=== PATIENT | female | born 1995 | race Caucasian/White ===

== ENCOUNTER → 2018-06-05 | Outpatient (CLI) | payer OTHER ==
--- NOTE | 2018-06-05 15:21 | MAMMOGRAPHY REPORT ---
ULTRASOUND OF LEFT BREAST: 06/05/2018 CLINICAL HISTORY: 23-year-old woman presents with a palpable lump in the 12:00 left breast. A prior l eft breast ultrasound dated 06/24/2016 demonstrated a complicated cyst in the area of concern, for whi ch short interval follow-up ultrasound was recommended. The patient now presents for follow-up and al so reports it may be increased in size and is more firm in texture. COMPARISON: Comparison is made to exam dated: 06/24/2016 ultrasound performed at [facility]. FINDINGS: Targeted ultrasound was performed in the area of palpable lump pointed out by the patient, in the 12:00 periareolar left breast. In the area of concern, there is a discrete rubbery oval mass approximately 1.5 cm. Targeted ultrasound performed over this mass demonstrates a superficial oval p arallel circumscribed predominantly anechoic cystic mass measuring 11.5 x 5.8 x 15.5 mm. This has no t significantly changed comparing to the prior ultrasound at which time it measured 1.6 x 4.4 x 1.4 m m. However, the patient wishes removal of this cyst and we discussed options of attempting fine-need le aspiration versus surgical excision. We will attempt fine-needle aspiration for symptomatic relie f but also discussed the possibility of reaccumulation after aspiration. IMPRESSION: ACR BI-RADS CATEGORY 4: SUSPICIOUS 1. Ultrasound-guided cyst aspiration is recommended for a palpable 15.5 mm cyst in the 12:00 left br east, containing a few thin internal nonvascular septations. These results and recommendations were discussed with the patient at the time of the exam. She tenta tively scheduled the cyst aspiration prior to leaving the department. Clotilde Garcia M.D. ay/:06/05/2018 14:21:15 Crochet Machine Operator: RT Jessica(Lonnie)(M), [facility] letter sent: Abnormal 4/5 BI-RADS Code: ACR BI-RADS Category 4: Suspicious
== END | disposition home or self-care (01) ==
LOC: C.MAMM 13:35
PROVIDERS: ATTEND Physician Assistant Medical
DX: N60.02 Solitary cyst of left breast (principal)

== ENCOUNTER → 2018-06-13 | Outpatient (CLI) | payer OTHER ==
--- NOTE | 2018-06-13 09:55 | Discharge Instructions ---
Discharge Instructions Procedure Procedure Date: Jun 13, 2018. Reason for visit: Left Breast Cyst Discharge Discharge Date: Jun 13, 2018. Discharge Diagnosis: post left breast ultrasound guided cyst aspiration Instructions Activity Recommendations: Additional Limitations (see below) Return to School/Work: no limitations Recommended Home Diet: No Limitations Provider Instructions: ACTIVITY RECOMMENDATIONS: * Rest today. * Resume regular activity in one day. MEDICATIONS: * May take Tylenol or Ibuprofen as needed for pain. DIET: * Resume previous diet. SPECIAL CARE INSTRUCTIONS: Call your doctor if: * Temperature above 101 degrees F. * Pain not relieved by pain medicine ordered. * Increased drainage or redness from incision. * Increasing chest pain or shortness of breath. * Notify your doctor with any questions or concerns. * If you have specific questions or concerns for Breast Radiology, please call us at during normal business hours or Dr. Garcia after hours at . FOLLOW UP VISIT: Follow-up with Referring Physician as scheduled. [facility] Recommendations: Call your doctor if: * Temperature above 101 degrees * Pain not relieved by pain medicine ordered * There is increased drainage or redness from any incision * You have any unanswered questions or concerns. Your Doctors Instructions noted above were prepared by provider Clotilde Garcia. Patient Signature Section: Patient Instructions Signature Page Anna Benson Patient (or Guardian) Signature/Date: I have read and understand the instructions given to me by my caregivers. Caregiver/RN/Doctor Signature/Date: The above-named patient and/or guardian has received patient instructions on this date. + Original Patient Signature Page (only) stays with chart. Please make copy for patient.
--- NOTE | 2018-06-13 13:37 | MAMMOGRAPHY REPORT ---
ASPIRATION LEFT BREAST: 06/13/2018 CLINICAL HISTORY: Palpable, mildly complicated 16 mm cyst in the left 12:00 breast. Patient presents for ultrasound-guided cyst aspiration. COMPARISON: Comparison is made to exams dated: 06/05/2018 ultrasound - [facility] a nd 06/24/2016 mammogram. PATIENT CONSENT: After explaining the risks, benefits and alternatives of the procedure to the patien t, informed consent was obtained verbally and in writing. Specific risks include: bleeding, infection and puncture of adjacent structure. A time out was preformed. PROCEDURE DESCRIPTION: The anechoic cystic appearing mass in the 12:00 left breast was identified and targeted for aspiration. 1% buffered lidocaine without epinephrine was administered subcutaneously a nd intraparenchymally as local anesthesia. A 22 gauge needle was advanced to the site of the mass. As piration was preformed and the cyst resolved completely. Approximately 2 cc of clear, straw-colored fluid or flushed in formalin and sent to the pathology department for cytologic analysis. Postprocedure mammography was deferred given the patient's age. IMPRESSION: ASPIRATION Status post aspiration to resolution of a palpable 16 mm cyst in the 12:00 periareolar left breast. The cyst completely resolved after aspiration and the fluid was sent to the pathology department for cytologic analysis. The patient will receive notification of the cytology results from her referring physician. Clotilde Garcia M.D. ay/:06/13/2018 10:00:49 Community Service Organization Director: TONIO Pool)([place]), [facility]
== END | disposition home or self-care (01) ==
LOC: C.MAMM 09:12
PROVIDERS: ATTEND Physician Assistant Medical
DX: N60.02 Solitary cyst of left breast (principal)